=== PATIENT | male | born 1945 | race Caucasian/White ===

== ENCOUNTER 2017-06-28 08:47 | Day surgery (SDC) | payer MEDICARE, OTHER, SELFPAY ==
[2017-06-28 09:05] VITALS: BP 104/75; PULSE 104; RESP 20; TEMP 36.2; O2SAT 100; BMI 30.8
--- NOTE | 2017-06-28 10:53 | PCM.OPRPT ---
Problem List (1) Personal history of colonic polyps Status: Acute Report of Operation Date of Procedure: 06/28/17 Pre-Operative Diagnosis: Personal history of colon polyps Post-Operative Diagnosis: Moderate internal hemorrhoids Surgery/Procedure Performed:: Colonoscopy Description of Surgical Findings:: Amount and informed consent was obtained. 72-year-old gent was taken to the endoscopy suite. He was placed in a left lateral decubitus position. Throughout the procedure he received total 100 mg Demerol 3.5 mg of Versed is intravenous sedation. Digital rectal exam performed. Moderate internal and external hemorrhoids. 3+ enlarged prostate. Flexible colonoscope inserted the rectum advanced to a tortuous sigmoid colon. The scope was then fairly readily advanced to the transverse colon and with minimal manipulation it was advanced to the cecum. The cecum ileocecal valve area was nicely achieved. Bowel prep was good with liquid stool throughout the colon which could be aspirated. The scope was carefully withdrawn from the cecum ascending colon transverse colon descending colon and sigmoid colon. There were no focal abnormalities identified. Scope was withdrawn to the rectum retroflex the anorectal verge inspected moderate internal hemorrhoids noted. No active bleeding. Excess fluid and air was aspirated free the procedure was completed with the patient tolerating it well. Impression Normal colon. Personal history of colon polyps. Most recent colonoscopy 3 years ago. Anticipate next colonoscopy in 5 years Cc: Dr. Ranjith Montero Medications were given at 1100. The scope was inserted at 03/14/2001. The cecum was reached at 1107.29. The procedure was completed at 1114.2 Nilesh Cagle M.D., F.A.C.S. Type of Anesthesia:: IV Sedation
--- NOTE | 2017-06-28 10:57 | HP.PCM_ITS ---
Problem List (1) Personal history of colonic polyps Status: Acute History of Present Illness Date of Admission: 06/28/17 The patient is a 72 year old M for history of colon polyps. He states that his most recent colonoscopy was 3 years ago and 3 separate polyps removed at that time. He claims that they were benign. He denies chest pain or shortness of breath. No abdominal pain. No change of bowel habits. He has no personal or family history of colon cancer. Presents via our open access program Past Medical History Past Medical History (Chronic Problems): Chronic Problems HTN (hypertension) (Chronic) HLD (hyperlipidemia) (Chronic) Benign prostate hyperplasia (Chronic) Allergies No Known Allergies Allergy (Verified 06/22/17 15:08) Home Medications: Ambulatory Orders Medication Instructions Recorded Aspirin [Adult Low Dose Aspirin EC] 81 mg PO DAILY 06/22/17 Doxazosin Mesylate [Cardura] 4 mg PO BID 06/22/17 Finasteride [Proscar] 5 mg PO DAILY 06/22/17 Fish Oil/Dha/Epa [Fish Oil 1,200 2 each PO BID 06/22/17 mg Fish Oil] Lisinopril/Hydrochlorothiazide 1 each PO DAILY 06/22/17 [Zestoretic 20-25 mg Tablet] Multivitamin [Multiple Vitamins] 1 each PO DAILY 06/22/17 Pantoprazole Sodium [Protonix] 20 mg PO DAILY 06/22/17 Simvastatin [Zocor] 20 mg PO QHS 06/22/17 Surgical History: herniorrhaphy Smoking Status: Former smoker Review of Systems Constitutional: Denies: Weight Change Eyes: Denies: Blurred vision, Vision Change HEENT: Denies: Ear Pain, Eye Pain Cardiovascular: Denies: Chest Pain, Claudication Respiratory: Denies: Cough, Shortness of Breath Gastrointestinal: Denies: Hematemesis, Hematochezia Genitourinary: Denies: Dysuria, Hematuria Musculoskeletal: Denies: Leg Pain Skin: Denies: Jaundice Neurological: Denies: Confusion Psychiatric: Denies: Depression Endocrine: Denies: Change in Body Habitus Hematologic/ Lymphatic: Denies: Easy Bleeding VTE Information - Inpt Only VTE Present on Admission: No Patient Problems: Active and Suspected Problems Personal history of colonic polyps (Acute) - Physical Exam General: Alert, Oriented x3, Cooperative, No apparent distress HEENT: Atraumatic Oral: Moist Mucosa Neck: Supple Lungs: Clear to auscultation Cardiovascular: Regular rate, Regular Rhythm Abdomen: Bowel Sounds Present, Soft, Non Tender, Non-Distended Extremities: No clubbing Skin: No rashes Musculoskeletal: No Tenderness to Palpation of Joints or Extremities Lymphatic: No Cervical, Supraclavicular, or Inguinal Adenopathy Neurological: Cranial nerves II-XII grossly intact Vital Signs Temp Pulse Resp BP Pulse Ox 97.1 F L 104 H 20 H 104/75 100 06/28/17 09:05 06/28/17 09:05 06/28/17 09:05 06/28/17 09:05 06/28/17 09:05 Oxygen Delivery Method Room Air Weight: 179 lb 7.3 oz Body Mass Index (BMI) 30.8 Assessment/Plan Active and Suspected Problems Personal history of colonic polyps (Acute) Patient with a personal history of colon polyps. We will pursue a colonoscopy with possible biopsy or polypectomy is indicated. He is aware of the technique , benefits, risks, alternatives. We will proceed as noted. Primary care physician is Dr. Ranjith Cagle M.D., F.A.C.S.
[2017-06-28 11:20] VITALS: BP 104/75; BP 95/67; PULSE 99; RESP 16; TEMP 36.6; O2SAT 92
[2017-06-28 11:25] VITALS: BP 104/75; BP 96/63; PULSE 96; RESP 16; O2SAT 92
[2017-06-28 11:30] VITALS: BP 104/75; BP 87/67; PULSE 99; RESP 16; O2SAT 93
[2017-06-28 11:35] VITALS: BP 104/75; BP 86/67; PULSE 89; RESP 16; TEMP 37.1; O2SAT 94
[2017-06-28 12:09] VITALS: BP 104/75
== END 2017-06-28 12:13 | disposition home or self-care (01) ==
LOC: EN 08:48 → AC 08:51
PROVIDERS: Family Provider Family Medicine; PCP Family Medicine; Visit Provider Surgery
PROC: 0DJD8ZZ Inspection of Lower Intestinal Tract, Via Natural or Artificial Opening Endoscopic (ICD-10-PCS; CPT 45378; principal; 2017-06-28 09:55)
DX: Z12.11 Encounter for screening for malignant neoplasm of colon (principal); K64.4 Residual hemorrhoidal skin tags; K64.8 Other hemorrhoids; Z86.010 Personal history of colon polyps; I10 Essential (primary) hypertension; E78.5 Hyperlipidemia, unspecified; N40.0 Benign prostatic hyperplasia without lower urinary tract symptoms; Z79.82 Long term (current) use of aspirin; Z79.899 Other long term (current) drug therapy; Z87.891 Personal history of nicotine dependence
CPT/HCPCS: 45378; 99152; 99153; J7120

== ENCOUNTER 2020-05-08 10:40 | Emergency (ER) | payer MEDICARE, OTHER, SELFPAY ==
[2020-05-08] VITALS (18 sets, daily range): BP systolic 78–130; BP diastolic 55–85; PULSE 28–633; RESP 12–19; TEMP 36.3–36.6; O2SAT 88–97; BMI 28.5
--- NOTE | 2020-05-08 11:19 | ED.RN ---
pt heart rate dropped into the 20's. pt dizzy pale and lethargic. heart rate came back up spontaneously within minutes.
--- NOTE | 2020-05-08 11:40 | EKG12_ITS ---
Test Reason : DIZZY Blood Pressure : / mmHG Vent. Rate : 082 BPM Atrial Rate : 082 BPM P-R Int : 184 ms QRS Dur : 094 ms QT Int : 362 ms P-R-T Axes : 047 009 059 degrees QTc Int : 422 ms Normal sinus rhythm with sinus arrhythmia Normal ECG Confirmed by GALO ROGERS, CORAL ([id number]), production editor MARIE ONTIVEROS ([id number]) on 05/12/2020 9:55:06 AM Referred By: SONIA Confirmed By:CHARLES ROSENTHAL MD
--- NOTE | 2020-05-08 11:59 | ED.RN ---
pt heart rated dropped to 20's for appx 1 minute. pt pale/yellowish color.
--- NOTE | 2020-05-08 12:00 | RAD_ITS ---
STUDY: X-RAY CHEST REASON FOR EXAM: Male, 75 years old. Cough, dizziness, COVID +, Hx. Hypertension. TECHNIQUE: Single AP portable view of the chest. COMPARISON: Comparison is made with prior study 06/30/2012. FINDINGS: EKG electrodes are seen. Mild increased markings at the left lung base with blunting of the left costophrenic angle. This may represent either early infiltrate or atelectasis. Normal size heart. Normal mediastinum and deyanira. Normal visualized pulmonary arteries. Normal visualized aortic arch and descending thoracic aorta. There are diffuse degenerative changes of the visualized thoracic spine. Normal visualized ribs, clavicles, and shoulders. There is no demonstrated abnormality of the visualized soft tissue structures of the upper abdomen. RAD/Chest 1 View (Portable) IMPRESSION: Increased markings at the left lung base with blunting of the left costophrenic angle. This may represent either atelectasis and/or early infiltrate. Electronically Signed: Cornelio Miranda MD at 12:25 EST , Service support ,
[2020-05-08 12:01] LABS: Absolute Lymphocyte Count 0.23 X10^3/uL (0.83-4.51); Absolute Neutrophil Count 2.4 X10^3/uL (2.0-7.7); Basophil# 0.01 X10^3/uL; Basophil% 0.3 % (0-1); Hematocrit 34.9 % (40-54); Hemoglobin 11.9 g/dL (13.0-16.5); Lymphocyte # 0.23 X10^3/ul (4.0); Lymphocyte % 7.1 % (19-41); Mean Corp Hgb Conc 34.1 g/dL (32-36); Mean Corpuscular Hgb 30.2 pg (27.0-32.0); Mean Corpuscular Volume 88.6 fL (80-94); Mean Platelet Vol. 9.7 fl (6.2-12.0); Monocyte# 0.54 X10^3/uL; Monocyte% 16.8 % (0-10); NRBC Flagged by Analyzer 0 % (0-5); Neutrophil % 74.6 % (47-70); POSITIVE DIFFERENTIAL YES; Platelet Count 198 K/mm3 (150-450); RBC Distribution Width SD 39.3 fl (35.1-43.9); Red Blood Count 3.94 M/mm3 (4.6-6.2); White Blood Count 3.2 K/mm3 (4.4-11.0)
--- NOTE | 2020-05-08 12:01 | ED.RN ---
reviewed monitor. pt has 20-25sec pauses. junctonal rythm then returns to sinus rhythm
[2020-05-08 12:06] LABS: Differential Indicated SCAN CRITERIA MET
[2020-05-08 12:10] LABS: ALB/GLOB Ratio 1.1 RATIO (0.9-2.4); AST(SGOT) 92 U/L (15-37); Alanine Aminotransfer ALT/SGPT 38 U/L (16-61); Albumin, Serum 3.8 g/dL (3.2-5.0); Alkaline Phosphatase 49 U/L (45-117); Anion Gap 7 (5-15); BUN 25 mg/dL (7-18); BUN/Creat Ratio 17.6 RATIO (10-20); Chloride 88 mmol/L (98-107); Creatinine, Serum 1.42 mg/dL (0.70-1.30); EST Glomerular Filtration Rate 52 mL/min (>60); Est Glom Filt Rate - Afr Amer 62 mL/min (>60); Globulin 3.6 g/dL (2.2-4.2); Glucose 135 mg/dL (74-106); Potassium 4.4 mmol/L (3.5-5.1); Protein, Total 7.4 g/dL (6.4-8.2); Sodium Level 124 mmol/L (136-145)
[2020-05-08 12:19] LABS: Differential Comment SCANNED
--- NOTE | 2020-05-08 12:27 | ED.RN ---
pt continues to have episodes of bradycardia then pauses of asystole. pt recovers on his own and remain concious and talking. dr Leong at bedside. Pt placed on demand pacer 40ppm 30ma.
[2020-05-08] MEDS: 0.9% Normal Saline 1,000 ML 1000 ML IV (12:30)
--- NOTE | 2020-05-08 12:42 | ED.RN ---
CURRENT ON PACER TURNED UP TO 35
--- NOTE | 2020-05-08 13:16 | NURSING ---
DR LUPE SCOTT
[2020-05-08 13:24] LABS: Lactic Acid 0.9 mmol/L (0.4-1.9)
--- NOTE | 2020-05-08 13:52 | NURSING ---
[facility] HAS NO BEDS [facility] NO B[facility]S
--- NOTE | 2020-05-08 13:52 | NURSING ---
1340 CALLED [facility]
--- NOTE | 2020-05-08 13:52 | NURSING ---
FAXED FACESHEET TO [facility]
--- NOTE | 2020-05-08 14:00 | ED.RN ---
Patient still has pacer pads in place while HR has improved. Will continue to monitor.
--- NOTE | 2020-05-08 14:03 | NURSING ---
DR HURLEY FOR DR SCOTT FAXED FACESHEET
--- NOTE | 2020-05-08 14:09 | NURSING ---
ACCEPTED AT [facility]. WAITING ON BED
--- NOTE | 2020-05-08 14:29 | NURSING ---
WAITING ON A ROOM CALLED [facility]. SANDRA IS FROM [place]
--- NOTE | 2020-05-08 14:58 | NURSING ---
[facility] DR JAUN WISEMAN N TO N [phone] ICU [id number]
--- NOTE | 2020-05-08 16:00 | ED.VISSUMM ---
- ER Visit Summary Date of Service: 05/08/20 Chief Complaint: Dizziness History of Present Illness: The patient is a 75 M who presents with dizziness that began today. Patient tested positive for COVID-19 3 days ago. Patient states he feels lightheaded. Patient states these episodes are intermittent. Patient states they last approximate 1 minute. Patient states they are worse with standing. Patient states it improves with sitting. Patient does admit to a mild headache. Patient has a history of hypertension but is not on any beta-blockers or other antihypertensives that also regulate the rate. Patient denies any shortness of breath. Physical Examination: Vital signs are stable. Patient is afebrile. Patient is in no acute distress. Oral mucosa is pink and moist. Neck is supple. Trachea is midline. There is no JVD noted. Heart was regular rate and rhythm. Lungs are clear and equal bilaterally. Abdomen is soft. Bowel sounds are normal. There is no tenderness. There is no rebound or guarding noted. Skin is warm dry. Cranial nerves II through XII are intact. There are no focal motor or sensory deficits noted. Extremities are intact. There is no calf tenderness or edema. Test Results: EKG was obtained. On my interpretation, it showed a normal sinus rhythm with a rate of 82. There are no acute ST or T wave changes. Portable 1 view chest x-ray was obtained. On my interpretation, lung marie show some left basilar atelectasis versus infiltrate. There is normal cardiac silhouette. Bony thorax is normal. There is no acute process noted. Radiologist also interpreted the x-ray and agrees. CBC was essentially within normal limits. Comprehensive metabolic profile showed a sodium 124 and chloride of 88. BUN was 25 and creatinine was 1.42. Troponin was normal. Lactate was normal. COVID-19 rapid antigen was obtained and was positive. Emergency Department Course and Treatment: Patient had episodes of bradycardia where he had 4 to 5-second pauses in his rhythm. Patient would then have a junctional escape beat followed by sinus beat and then it would improve back to a normal sinus rhythm with a normal rate. Patient was placed on transcutaneous pacer. Patient was being paced and was comfortable. Case was discussed with Dr. Degroot. He was in to evaluate the patient. He recommended transferring the patient to a tertiary care center because the patient may need a EP study. Case was discussed with Dr. Joshi at [facility]. Patient will be transferred there to the service of Dr. Martinez. Disposition: Transfer to [facility] Impression: 1. Bradycardia 2. COVID-19 Critical care time: 30 minutes. This was time spent obtaining history, performing physical examination, documenting, interpreting test results, discussion with consultants, and determining disposition. This note was generated with [employer] dictation software. It may contain incorrect words, spelling, and punctuation that were not noted in review of the chart prior to signing ED Disposition - Plan for ED Patient: Disposition: [facility] Diagnosis: Bradycardia, COVID-19 Referrals: Ranjith Montero MD [Primary Care Provider] -
[2020-05-09 13:53] LABS: Pathologist Review Reviewed
== END 2020-05-08 15:27 | disposition short-term general hospital (02) ==
LOC: ED 12:03
PROVIDERS: Emergency Provider Emergency Medicine; PCP Family Medicine
DX: U07.1 COVID-19 (principal); R51.9 Headache, unspecified; I10 Essential (primary) hypertension; R00.1 Bradycardia, unspecified; Z79.82 Long term (current) use of aspirin; Z79.899 Other long term (current) drug therapy
CPT/HCPCS: 71045; 80053; 83605; 84484; 85025; 87426; 93005; 96360; 96361; 99285; J7030; A4216

== ENCOUNTER 2020-08-29 15:13 | Outpatient (RCR) | payer MEDICARE, OTHER, SELFPAY ==
[2020-05-08 10:42] VITALS: BMI 28.5
== END 2020-10-03 23:59 ==
LOC: IMMUN 15:13
PROVIDERS: PCP Family Medicine; Referring Provider Family Medicine; Visit Provider Family Medicine
DX: Z23 Encounter for immunization (principal)
CPT/HCPCS: 0001A; 91300